=== PATIENT | male | born 1980 | race Caucasian/White ===

== ENCOUNTER 2025-03-29 20:30 | Emergency (ER) | payer OTHER, SELFPAY ==
[2025-03-29 20:42] VITALS: BP 142/106; PULSE 96; RESP 24; TEMP 36.8; O2SAT 96; BMI 30.1
--- NOTE | 2025-03-29 21:14 | ED.GENADULT ---
HPI - General Adult General Chief complaint: Allergic Reaction Stated complaint: bee sting- rash Time Seen by Provider: 03/29/25 21:13 History of Present Illness HPI narrative: Pt reports he was stung by a ground wasp/bee at noon. Pt was stung on right wrist area. Right hand and forearm are red and swollen. Pt reports feeling worsening chest tightness throughout the day. Did take 50 mg benadryl approx 45 mins ago (1999). Pt reports he has been told by his that he is allergic to bees. Pt reports he has been stung several times in the last few years and never did anything about it and symptoms resolved. No history of anaphylaxis. 44-year-old man presenting to the emergency department following a bee sting. This was a ground wasps/hornet. Site of envenomation appears to have been the right wrist. About 3 hours prior to this interview took 50 mg of diphenhydramine. Did does feel a little bit of chest tightness that has not worsened. He is not short of breath. Sting was around 9 in 1/2 hours ago now. He did initially feel a lump in his throat. Has felt a little bit off in his stomach; maybe nauseated. In no difficulty breathing. No rashes elsewhere but right arm and wrist and hand have been progressively more swollen and red. Month or 2 ago did seem to have spontaneous swelling of his right forearm for unclear reason. Does not recall getting stung. Treated symptoms at home with icing and compression. Spouse who is a nurse, was concerned that maybe cellulitis might be recurring. Related Data Home Medications ?Medication ?Instructions ?Recorded ?Confirmed celecoxib .ROUTE 03/29/25 omeprazole 40 mg capsule,delayed 40 mg PO DAILY 03/29/25 03/29/25 release sertraline 100 mg tablet (Zoloft) 200 mg PO DAILY 03/29/25 03/29/25 sildenafil .ROUTE 03/29/25 Previous Rx's ?Medication ?Instructions ?Recorded epinephrine 0.3 mg/0.3 mL 0.3 ml IM Q5-15M PRN #2 ea 03/29/25 injection, auto-injector (EpiPen 2-Cyril) prednisone 20 mg tablet 20 mg PO BID 3 days #6 tabs 03/29/25 Allergies Allergy/AdvReac Type Severity Reaction Status Date / Time bee venom protein (honey bee) Allergy Unknown Verified 03/29/25 20:48 Review of Systems Status of ROS: Reports: 6 or more systems reviewed and unremarkable except as noted in History and below [facility] Social History Smoking Status: Never smoker Do you use any of these nicotine containing products: None Second hand tobacco smoke exposure: No How often do you have a drink containing alcohol: monthly or less AUDIT-C Alcohol total score: 1 Non-prescribed substance use: denies use Exam Narrative: Exam Narrative: Pleasant. NAD but maybe a little restless. Face is flushed. Breathing easily. No stridor. Oropharynx unremarkable. Lungs are clear. Heart is in elevated rate regular rhythm. Skin is warm and dry. The right forearm is generally tense and swollen with moderate calor and erythema broadly. More noticeable on the volar surface. At the radial wrist there is a point of serous fluid, presumably the site of envenomation. I do not see a stinger. Const: Vital Signs, click to edit/add: Vital Signs - 24 hr 03/29/25 20:42 Temperature 98.2 F Pulse Rate [Pulse Oximeter] 96 Respiratory Rate 24 Blood Pressure [Le ft Upper Arm] 142/106 H Pulse Oximetry 96 Oxygen Delivery Me thod Room Air Documenting provider has reviewed patient's vital signs: yes Course Vital Signs Vital signs: Initial Vital Signs Temperature 98.2 F 03/29/25 20:42 Temperature Source Temporal Artery Scan 03/29/25 20:42 Pulse Rate 96 03/29/25 20:42 Respiratory Rate 24 03/29/25 20:42 Blood Pressure 142/106 H 03/29/25 20:42 Blood Pressure Mean 118 H 03/29/25 20:42 Blood Pressure Position Sitting 03/29/25 20:42 Pulse Oximetry 96 03/29/25 20:42 Oxygen Delivery Method Room Air 03/29/25 20:42 Vital Signs Temperature 98.2 F 03/29/25 20:42 Pulse Rate 96 03/29/25 20:42 Respiratory Rate 24 03/29/25 20:42 Blood Pressure 142/106 H 03/29/25 20:42 Pulse Oximetry 96 03/29/25 20:42 Oxygen Delivery Method Room Air 03/29/25 20:42 Temperature 98.2 F 03/29/25 20:42 Pulse Rate 96 03/29/25 20:42 Respiratory Rate 24 03/29/25 20:42 Blood Pressure 142/106 H 03/29/25 20:42 Pulse Oximetry 96 03/29/25 20:42 Oxygen Delivery Method Room Air 03/29/25 20:42 Medications Administered Medications: Discontinued Medications Generic Name Dose Route Start Last Admin Trade Name Loren PRN Reason Stop Dose Admin Famotidine 20 mg 03/29/25 21:39 03/29/25 21:48 Famotidine 20 Mg Tablet PO 03/29/25 21:40 20 mg ONCE ONE Administration Prednisone 80 mg 03/29/25 21:39 03/29/25 21:48 Prednisone 20 Mg Tablet PO 03/29/25 21:40 80 mg ONCE ONE Administration Medical Decision Making MDM Narrative Medical decision making narrative: Does not appear to involve respiratory but rather intense reaction here. Did take some diphenhydramine in this should be starting to work. Discussed another dosing which was retrieved from the car. I think can treat with oral medications at this point still. Per concern, I do not think this represents a cellulitis at this point otherwise. Given famotidine and prednisone. Monitored for improvement. Elevate arm. After period of time in the emergency department is improved and there was further progression of symptoms. Reassessment shows considerably less swelling less erythema less calor to the right forearm. Requesting departure. See patient discharge plan for further discussion Yes, it looks like you are in good hands. Elevate for comfort. Consider compression or at least cold packs for comfort as well. For breakthrough itch, irritation or if do have any indication of difficulty breathing, take diphenhydramine and return to the emergency department. Also prescribing epinephrine if seems to be escalating quickly in this regard or you have a concerning re-exposure. Take prednisone twice daily over the next 3 days. Prescribing 1 refill Discharge Plan Discharge Clinical Impression: Sting, hornet Patient Disposition: Home w/ Parent or Adult Condition: Improved Additional Instructions: Yes, it looks like you are in good hands. Elevate for comfort. Consider compression or at least cold packs for comfort as well. For breakthrough itch, irritation or if do have any indication of difficulty breathing, take diphenhydramine and return to the emergency department. Also prescribing epinephrine if seems to be escalating quickly in this regard or you have a concerning re-exposure. Take prednisone twice daily over the next 3 days. Prescribing 1 refill Prescriptions: New prednisone 20 mg tablet 20 mg PO BID 3 Days Qty: 6 1RF epinephrine [EpiPen 2-Cyril] 0.3 mg/0.3 mL auto-injector 0.3 ml IM Q5-15M PRNQty: 2 0RF Rx Instructions: do not exceed 3 doses per episode No Action sertraline [Zoloft] 100 mg tablet 200 mg PO DAILY celecoxib [Celebrex] .ROUTE omeprazole 40 mg capsule,delayed release(DR/EC) 40 mg PO DAILY sildenafil .ROUTE Follow Up/Referrals: Provider,Not a Local [Primary Care Provider, Family Practice] Stand Alone Forms: [facility] Info Instructions
[2025-03-29] MEDS: FAMOTIDINE 20 MG TABLET PO (21:48)
--- OUTSIDE RECORDS SUMMARY | 2025-03-29 22:12 | XMS_ITS | Clinical Summary ---
Author Organization [employer] [facility] Address [address] [place] [id number] Care Team Providers Care Head Of Acquisitions Name Role Phone Unavailable Primary Care Provider Unavailabl e Immunizations Immunization Administration Dates Next Due Influenza, IIV4 06/25/2015 Social History Tobacco Use Types Packs/Day Years Used Date Smoking Tobacco: Never Assessed Sex and Gender Information Value Date Recorded Sex Assigned at Not on file Legal Sex Male 6:41 AM [employer] Gender Identity Not on file Sexual Orientation Not on file Plan of Treatment Health Maintenance Due Date Last Done Comments Tetanus booster 1993 Depression screening for age 12+ 1994 HIV for age 15-65 1997 BMI (ht and wt on same day) for age 18+ 2000 Hepatitis C screening for ag e 18-79 2000 Hepatitis B series for 19+ ( 1 of 3 - 19+ 3-dose series) 2001 Lipids for age 35-44 2017 COVID-19 vaccine series ( season) 2024 Influenza Vaccine (#1) 2025 06/25/2015 Pneumococcal series for age 6-49 Aged Out No longer eligible based on patient's age to complete this topic
== END 2025-03-29 22:49 | disposition home or self-care (01) ==
PROVIDERS: Emergency Provider Family Medicine
DX: T63.451A Toxic effect of venom of hornets, accidental (unintentional), initial encounter (principal)
CPT/HCPCS: 99283; 99284; A9270; J7512